=== PATIENT | male | born 2005 | race Caucasian/White ===

== ENCOUNTER → 2024-08-02 17:13 | Outpatient (REF) | payer OTHER, SELFPAY | LOC: PAVMRI 17:13 | DX: G93.5 Compression of brain (principal) | CPT/HCPCS: 70551; 72141; 72146 ==

== ENCOUNTER → 2025-08-06 12:46 | Outpatient (REF) | payer OTHER, SELFPAY | LOC: MRI 3T 12:46 | PROVIDERS: ATTENDING PHYSICIAN Internal Medicine | DX: Q07.00 Arnold-Chiari syndrome without spina bifida or hydrocephalus (principal) | CPT/HCPCS: 72141 ==